=== PATIENT | female | born 1945 | race Caucasian/White ===

== ENCOUNTER 2018-09-26 05:59 | Emergency (ER) | payer MEDICARE, OTHER ==
[~2018-09-26] VITALS: Ht 175.3 cm; Wt 65.9 kg
[2018-09-26 06:38] VITALS: BP 143/63
[2018-09-26] MEDS ORDERED: PRED20TA PO (07:19)
== END 2018-09-26 07:35 | disposition home or self-care (01) ==
LOC: ER 05:59
DX: R21 Rash and other nonspecific skin eruption (principal); L98.8 Other specified disorders of the skin and subcutaneous tissue; E78.00 Pure hypercholesterolemia, unspecified; Z85.3 Personal history of malignant neoplasm of breast; Z88.6 Allergy status to analgesic agent; Z79.899 Other long term (current) drug therapy
CPT/HCPCS: 99283